=== PATIENT | female | born 1955 | race Caucasian/White ===

== ENCOUNTER 2024-04-26 06:16 | Day surgery (SDC) | payer OTHER, SELFPAY ==
[2024-04-21 13:27] VITALS: BMI 33.9
[2024-04-21 14:37] LABS: INR 0.84; PT 11.8 Sec (11.4-14.6)
[2024-04-21 14:38] LABS: APTT 27.8 Sec (23.4-35.0)
[2024-04-26] VITALS (9 sets, daily range): BP systolic 98–143; BP diastolic 59–93; BMI 33.9
[2024-04-26] MEDS: NORMOSOL-R/PLASMALYTE-A 1000 IV (10:09)
[2024-04-26 10:36] LABS: % Basophils 1.2 % (0-2); % Eosinophils 3.6 % (0-6); % Immature Granulocytes 0.2 % (0-0.5); % Lymphocytes 43.7 % (20.5-51.1); % Monocytes 7.3 % (1.7-9.3); Absolute Basophils 0.1 10^3/uL (0-0.2); Absolute Eosinophils 0.2 10^3/uL (0-0.7); Absolute Lymphocytes 2.5 10^3/uL (1.2-3.4); Absolute Monocytes 0.4 10^3/uL (0.1-0.6); Absolute Neutrophils 2.6 10^3/uL (1.4-6.5); Hematocrit 40.5 % (37.0-47.0); Hemoglobin 13.9 g/dL (12.0-16.0); Mean Corp Hgb Conc. 34.3 g/dL (33.0-37.0); Mean Corpuscular Hgb 31.7 pg (27.0-31.0); Mean Corpuscular Volume 92.3 fL (81.0-99.0); Nucleated Red Blood Cells % 0 %; Platelet Count 231 10^3/uL (130-400); Red Blood Cell Count 4.39 10^6/uL (4.20-5.40); Red Cell Dist. Width 11.9 % (11.5-14.5); White Blood Cell Count 5.8 10^3/uL (4.8-10.8)
== END 2024-04-26 14:12 | disposition home or self-care (01) ==
LOC: SDS 06:16
PROVIDERS: ATTENDING PHYSICIAN Obstetrics & Gynecology; FAMILY PHYSICIAN Family Medicine
DX: N84.0 Polyp of corpus uteri (principal); R93.89 Abnormal findings on diagnostic imaging of other specified body structures
CPT/HCPCS: 58558; 88305; 36415; 85025; 85610; 85730